=== PATIENT | male | born 1935 | race Caucasian/White ===

== ENCOUNTER 2016-07-30 09:45 | Inpatient (IN) | payer MEDICARE ==
[~2016-07-30] VITALS: Ht 172.7 cm; Wt 93.2 kg
--- NOTE | ~2016-07-30 | ECH ---
Transthoracic Echocardiography Report (TTE) Demographics Patient Name ELIZABETH BIRMINGHAM Date of Study 07/30/2016 Patient Number [id number] Visit Number [id number] Date of 1935 Room Number 414 Accession Number [id number] Gender Male Age 80 year(s) Referring Nadine Tobar Mill Attendant Britany Luz [facility] Physician Rupali Fuentes MD Physician Interpreting Rupali Fuentes Picture Frames Inspector Physician Supervising Ordering Physician Nadine Tobar MD/P Nurse Stress Supervisor Plasma Conclusions Summary Technically good exam. The estimated left ventricular ejection fraction is 15-20%. Mild concentric left ventricular hypertrophy. Moderately dilated right ventricle with normal function. The left atrium is mildly dilated by LA volume index measurement. The right atrium is moderately dilated. Mild mitral regurgitation by color Doppler. There is trivial aortic regurgitation by color Doppler. Moderate tricuspid regurgitation by color Doppler. There is severe pulmonary hypertension. The pulmonary pressure (RVSP) is 81 mmHg. Procedure Type of Study TTE procedure:Echo Complete SF. Procedure Date Date: 07/30/2016 Start: 02:59 PM Technical Quality: Good visualization Indications:Atrial fibrillation, Chest pain, Congestive heart failure, Elevated Troponin, Diabetes and Hypertension. Appropriate Use Criteria: 9 Height: 68 inches Weight: 223 pounds BSA: 2.14 m Rhythm: Atrial fibrillation HR: 80 bpm BP: 150/67 mmHg M-Mode/2D Measurements LV Diastolic Dimension: 5.46 cm LV Systolic Dimension: 4.73 cm LV Septum Diastolic: 1.13 cm LV PW Diastolic: 1.28 cm AO Root Dimension: 3.46 cm Cardiac Output: 4.81 l/min LA Dimension: 4.2 cm Cardiac Index: 2.25 l/min*m RV Diastolic Dimension: 3.98 cm LA volume index: 40 ml/m LVOT: 2.22 cm LVOT VTI: 15.53 cm RV Base: 4.9 cm LV Stroke volume: 60.08 ml RV Mid: 2.9 cm LV Stroke volume index: 28.07 ml/m TAPSE: 2 cm TDI-S': 11 cm/s Doppler Measurements AV Peak Velocity: 1.1 m/s MV Peak E-Wave: 1.04 m/s AV Peak Gradient: 4.84 mmHg AV Mean Gradient: 2.58 mmHg MV P1/2t: 49 msec LVOT Peak Velocity: 0.88 m/s AV Area (Continuity):3.6 cm AV P1/2t: 456.8 msec MV Area (PHT): 4.49 cm TR Velocity:4.06 m/s PV Peak Velocity: 1.09 m/s TR Gradient:65.93 mmHg PV Peak Gradient: 4.73 mmHg Estimated RAP:15 mmHg Estimated PASP: 80.93 mmHg Estimated RVSP: 81 mmHg RA Area: 24.27 cm Findings Left Ventricle The left ventricle is normal in size . Mild concentric left ventricular hypertrophy. Diastolic function indeterminate due to patient's arrhythmia. The interventricular septum is flattened which is consistent with right ventricular pressure / and or volume overload. Right Ventricle Moderately dilated right ventricle with normal function. Left Atrium The left atrium is mildly dilated by LA volume index measurement. Right Atrium The right atrium is moderately dilated. Mitral Valve Normal mitral valve structure and function. Mild mitral regurgitation by color Doppler. Aortic Valve The aortic valve is mildly sclerotic. There is trivial aortic regurgitation by color Doppler. Tricuspid Valve Normal tricuspid valve structure and function. Mild-moderate tricuspid regurgitation by color Doppler. There is severe pulmonary hypertension. The pulmonary pressure (RVSP) is 81 mmHg. Pulmonic Valve Normal pulmonic valve structure and function. Mild pulmonic valve regurgitation by color Doppler. Pericardial Effusion No evidence of pericardial effusion. Miscellaneous Visualized portions of the aortic root and ascending aorta appear normal in size. Pleural Effusion No evidence of pleural effusion. Contractility Score LV regional wall motion:(0-Non visualized 1-Normal 2-Hypokinesis 3-Akinesis 4-Dyskinesis 5-Aneurysm) Signature
--- NOTE | ~2016-07-30 | CATH ---
Cardiac Diagnostic Report Demographics Patient Name VALENCIA Moreno Gender Male Date of 1935 Age 80 year(s) Patient Number [id number] Date of Study 08/01/2016 Visit Number [id number] Room Number 414 Corporate ID Ht 172.72 cm Wt 101.15 kg Accession Number [id number] BSA 2.14 m kg/m Referring Nadine Tobar Primary Physician Physician King Cecil Goode MD Performing King Cecil Goode MD Secondary Physician Physician Diagnostic King Cecil Goode MD Assisting Physician Physician Interventional Physician Work Over Rig Operator Physician Findings and Conclusions Diagnostic Findings and Conclusion Nonischemic cardiomyopathy. Diagnostic Recommendations Medical management. Possible ICD. Procedure Description The patient was brought to the diagnostic cardiac catheterization laboratory in the fasting, non-sedated state. Informed consent was obtained in the written and verbal form after the risks and benefits were explained. The patient had no further questions and agreed to proceed. The planned puncture-incision site(s) were clipped and prepped with ChloraPrep and draped in the usual sterile manner. Conscious sedation, supplemental oxygen, and pain control medications were delivered by a registered nurse under physician guidance. Surface ECG rhythm, blood pressure measurement, and pulse oximetry were monitored throughout the procedure. Arterial access. The right radial access site was infiltrated with lidocaine. The vessel was entered with the Seldinger technique. A 6F sheath was advanced into the vessel and used for catheter placement. Left heart catheterization with ventriculography. A TIG catheter was advanced across the aortic valve to the left ventricle under fluoroscopic guidance. Resting hemodynamics were obtained. With the catheter at the left ventricular apex, contrast was injected. Images were obtained in WALL projection. Post-ventriculography LV pressure was obtained. The catheter was gradually withdrawn into the aorta with continuous pressure recording. Selective right coronary angiography. A TIG catheter was advanced into the right coronary vessel ostium under fluoroscopic guidance. Contrast was injected by hand. Images were obtained in multiple projections. Selective left coronary angiography. An FL4 catheter was advanced into the left coronary vessel ostium under Fluoroscopic guidance. Contrast was injected by hand. Images were obtained in multiple projections. Hemostasis: The sheath was removed and a TR Band was placed. Hemostasis was achieved. The patient was transferred to a regular nursing floor via cart accompanied by a nurse. The patient left the laboratory in stable condition. Procedure Procedure Type Diagnostic procedure:Ventriculogram:, Left, Angiography:, Coronary Angios w/LHC Indications: Acute Systolic Heart Failure, Hypertension, Hyperlipidemia and Diabetes. The procedure was explained in detail to the patient. Risks, complications and alternative treatments were reviewed. Written consent was obtained. Medications Reviewed with Patient prior to Procedure. Complications: No Complication. Angiographic Findings Dominance: Mixed Cardiac Arteries and Lesion Findings LMCA: Normal (0% Stenosis).Short LAD: Abnormal.SANDEE II flow Lesion on Mid LAD: 30% stenosis . Pre procedure SANDEE II flow was noted. LCx: Normal (0% Stenosis).SANDEE II flow RCA: Normal (0% Stenosis).SANDEE II flow Coronary Tree Procedure Data Procedure Date Date: 08/01/2016Start: 10:55 AMEnd: 11:17 AM Entry Locations - Percutaneous access was performed through the Right Radial artery (Primary location). A 6 Fr sheath was inserted. Hemostasis was successfully obtained using a TR band. Procedure Medications Order and Administration + + +-------+--------+ !Time !Medication !Dosage !Route ! + + +-------+--------+ !08/01/2016 !Versed !2 mg !I.V. ! !10:48 AM ! ! ! ! + + +-------+--------+ !08/01/2016 !Fentanyl !25 mcg !I.V. ! !10:48 AM ! ! ! ! + + +-------+--------+ !08/01/2016 !Sodium Chloride !10 ml !I.V. ! !10:48 AM ! ! ! ! + + +-------+--------+ !08/01/2016 !Oxygen !4 l/min!NC ! !10:52 AM ! ! ! ! + + +-------+--------+ !08/01/2016 !SF Radial Cocktail: 200mcg Nitro, 2.5 mg ! !I.A. ! !10:57 AM !Verapamil, 5000u Heparin ! ! ! + + +-------+--------+ !08/01/2016 !Oxygen !6 l/min!NC ! !11:01 AM ! ! ! ! + + +-------+--------+ Devices Used - A6 Fr6F TIG CATHETERwas used for:RightsideCoronary Angios. - A6 FrCATH 6FR FL4 CATHETER 100CMwas used for:LeftsideCoronary Angios. Contrast Material - Isovue 65154 ml Fluoroscopy Time: Diagnostic: 2:24 minutes. Total: 2:24 minutes. Fluoroscopy Dose: Diagnostic: 782 mGy. Total: 782 mGy. Estimated Blood Loss: 8 ml. Medical History Allergies - No known allergies. Risk Factors The patient risk factors include:hypercholesterolemia, treated hypertension, orally-treated diabetes mellitus, last creatinine: 1.2 mg/dl, creatinine clearance: 72.59 ml/min and dyslipidemia. Admission Data Admission Date: 07/30/2016 Admission Time: 11:40 AM Insurance Payors: Medicare. Clinical Evaluation Leading to Procedure Diagnosed on 07/31/2016 09:54 AM. - Anti-anginal medications were prescribed during the past two weeks. The medication is: Beta Blockers. - The reason for the patient's rn labor delivery visit is evaluation of cardiomyopathy and/or evaluation of left ventricular systolic dysfunction. VA LV function assessed as:Abnormal. Ejection Fraction - 08/01/2016 - Method: LV gram. EF%: 15. LVA Segment Contractility 1 - Normal 3 - Mild 5 - Severe 7 - Dyskinesis hypokinesis hypokinesis 2 - 4 - Moderate 6 - Akinesis 8 - Aneurysm Hypokinesis hypokinesis Hemodynamics Condition: Rest O2 Consumption: Estimated: 244.10Heart Rate: 69 bpm Pressures (mmHg) +-----+ + !Site !Pressure ! +-----+ + !LV !92/3 ,5 ! +-----+ + !AO !113/52 (89) ! +-----+ + !LV !108/0 ,32 ! +-----+ + Valve Gradients and Areas + +---------+---------+---------+ +---------+ + !Valve !Peak !Mean !Area !Index !Flow !Source ! + +---------+---------+---------+ +---------+ + !Aortic !0 ! ! ! ! ! ! + +---------+---------+---------+ +---------+ + !Aortic !0 ! ! ! ! ! ! + +---------+---------+---------+ +---------+ + Shunts Oxygen Values O2 Capacity 212.16 O2 Consumption 244.1 Discharge Data Discharge Date: 08/03/2016 Hospital Status: Inpatient Signatures
--- NOTE | 2016-08-01 10:19 | HP ---
ADMIT: 07/30/2016 RM/LOC: 414 [facility] MR#: [id number] [id number] [place], [place] [address] ELIZABETH BIRMINGHAM [address] [place] [id number] History and Physical SEX: M AGE: 80 : 1935 DATE OF SERVICE: CHIEF COMPLAINT: Severe shortness of breath, exertional dyspnea. CLINICAL HISTORY: Mr. 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 The patient had actually been seen the previous day in our office with complaints of shortness of breath and what he referred to as chest congestion. When evaluated at our office on 07/29/2016, he was found to be in atrial fibrillation with controlled ventricular response. His chest x-ray at the time in our office showed cardiomegaly without evidence of pulmonary edema. He did not have significant weight gain or peripheral edema. However, he did have new onset atrial fibrillation. I had visited with Dr. Zhang at [facility], who felt that we could start him on anticoagulation and proceed with workup on an outpatient basis. He was started on metoprolol 25 mg b.i.d. to help with rate control and started on oral Eliquis, but he notes that he actually felt more short of breath and was so dyspneic, he could not do his morning chores on the morning of 07/30/2016. So, after contacting our office, he was instructed to come to the ER where he was evaluated. Once again, he was found to be in atrial fibrillation with rate controlled. His chest x-ray in the ER showed cardiomegaly with some changes of pulmonary vascular congestion with small bilateral pleural effusions. His proBNP in the ER was elevated at 7603. For that reason, it was felt that he was in significant congestive heart failure and was given IV Lasix. He notes following that dose of Lasix in the ER, he immediately started to breathe easier. He has no previous history of congestive heart failure. No history of chest pain. He has no history of angina or any recent chest discomfort of any kind other than for shortness of breath with marked decrease in activity tolerance. He had noted the onset of this change in his physical activity tolerance about 3-4 weeks ago and it has slowly gotten a little worse since that time. He does have multiple cardiac risk factors including a history of hypertension, hyperlipidemia, and type 2 diabetes as well as obesity and a somewhat sedentary lifestyle. 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 However, it has progressed to the point that the last couple of days, he has been unable, as noted, to do his morning chores because of his dyspnea. After being evaluated in the ER, it was felt that we needed to admit for treatment of his congestive heart failure and proceed with further somewhat urgent cardiac workup. PAST MEDICAL HISTORY: Recent hospitalizations; his most recent medical hospitalization was in 2013, was hospitalized with abdominal pain at that time and was found to have multiple ureteral stones. He has a history of nephrolithiasis, was admitted with obstructive uropathy and bilateral ureterolithiasis. In August of 2013, he had undergone multiple lithotripsies as an outpatient since that time. He was hospitalized in 2009 with acute cellulitis of his right lower extremity related to a soft-tissue injury as well as prepatellar bursitis. Previous surgical procedures; the patient is ADMIT: 07/30/2016 RM/LOC: 414 [facility] MR#: [id number] [address] [address] ELIZABETH BIRMINGHAM [address] [place] [address] History and Physical SEX: M AGE: 80 : 1935 noted to have had multiple cysto's and placement of ureteral stents over the years for his kidney stones. He had bilateral stents placed in 2013 when he had those kidney stones. He also had stone basketing of a distal right ureteral calculus in 2006 and was admitted in 2002 with kidney stones as well. His initial kidney stone was in 1995. The patient does have a history as noted of multiple cysto's and stent placement as well as lithotripsy. He also has a history of previous tendon repair following a laceration of his left thumb in 1992. No other recent hospitalizations or surgical procedures. MEDICAL ILLNESSES: Include: 1. Hypertension. 2. Type 2 diabetes. 3. Hyperlipidemia. 4. Hyperuricemia. 5. Nephrolithiasis with history of uric acid stones. 6. SA node dysfunction with new onset atrial fib diagnosed on 07/29/2016. CURRENT MEDICATIONS: Include: 1. Lotrel 5/20 one q.a.m. 2. Metoprolol 25 mg b.i.d., started 07/29/2016. 3. Allopurinol 300 mg daily. 4. Eliquis 5 mg b.i.d., started 07/29/2016. 5. Metformin 500 mg one q.a.m. 6. Rosetta 180 mg daily for allergy. ALLERGIES: NO KNOWN DRUG ALLERGIES BUT DOES HAVE HISTORY OF SEASONAL ALLERGIC RHINITIS. SOCIAL HISTORY: The patient is . 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 He is a lifelong nonsmoker. No history of illicit drug use or alcohol abuse. FAMILY HISTORY: Family history is significant in that one of his brothers has a history of significant coronary artery disease and heart problems. Brother also has a history of atrial fib. He also notes a strong family history of kidney stones in several of his family members. No other familial health problems noted. REVIEW OF SYSTEMS: CONSTITUTIONAL: He notes he has not felt well for the last 3-4 weeks, very fatigued, decreased activity tolerance. He notes he just wears out easily, does not have his usual stamina and endurance. He denies fever or chills. He has had no weight loss. No change in appetite. HEENT: No new eye, ear, nose, or throat complaints. He denies any hearing deficits. No blurring of vision or double vision. No upper respiratory congestion other than for some allergy-related nasal congestion. PULMONARY: He has been very short of breath with activity. Notes if he sits around and does not do much, he is fine. It has gotten to the point that it is difficult to walk from his home up to his bar to do chores because he gets ADMIT: 07/30/2016 RM/LOC: 414 [facility] MR#: [id number] [address] [address] ELIZABETH BIRMINGHAM [address] [place] [address] History and Physical SEX: M AGE: 80 : 1935 so short of breath. No cough. No sputum production. No hemoptysis. No pleuritic chest pain. CARDIAC: No known coronary artery disease until when he was seen at our office on 07/29/2016, was found to have atrial fibrillation with rate controlled. No chest pain. He denies orthopnea. GASTROINTESTINAL: No nausea. No vomiting. No diarrhea. No blood in the bowel movements. No change in bowel habitus. GENITOURINARY: History of kidney stones. History of uric acid stones. No flank pain or dysuria at this time. MUSCULOSKELETAL: Some generalized arthritic discomfort. History of polyarthralgia, at one point was diagnosed with inflammatory arthritis, was on prednisone for an extended period of time. Now uses white grapes soaked in gin as his full-time remedy for arthritic pain. Eats about eight of these grapes per day. NEUROLOGIC: No history of strokes, seizures, or TIA's. No focal neurologic symptoms. No history of diabetic neuropathy. ENDOCRINE: He is a type 2 diabetic. Blood sugars are usually well controlled. HEMATOLOGIC: No history of blood clots or clotting disorders. No significant history of anemia. PHYSICAL EXAMINATION: VITAL SIGNS: Temp is 96.8, pulse is 86, respirations 20, blood pressure 150/67, O2 saturation 98% on room air. His weight is 223 pounds. GENERAL: The patient is a 80-year-old male, who appears his stated age. He is in no acute distress. He is resting comfortably in bed at this time, oriented x3. HEENT: Reveals his ears to be clear. Nose and throat are noninflamed. Oropharynx is normal. His pupils are equal and reactive. Sclerae are nonicteric. Conjunctivae noninflamed. NECK: Supple. Thyroid not enlarged. I cannot appreciate any significant neck vein distention. No carotid bruits. LUNGS: Noted to be clear. He is a little diminished in the bases but no wheezes. No crackles heard. HEART: Noted to be irregularly irregular. The rate is running in the 80s. I cannot appreciate significant murmur. ABDOMEN: Protuberant and obese, soft, nontender. No masses. No organomegaly. No hernias. Bowel sounds are normoactive. GENITALIA: Normal male. No hernias. EXTREMITIES: Noted to have trace of pedal and ankle edema, some mild pretibial edema, a very little edema in the lower extremities. No calf tenderness. Negative Homans sign. Strength in his lower extremities is normal. NEUROLOGIC: I can see no focal deficit. Balance is normal. Gait is normal. Cranial nerves II through XII are grossly intact. LABORATORY AND X-RAY DATA: His pre-admission laboratory work revealed a CBC that showed a white count of 6600, hemoglobin 14.5, hematocrit 42.9. ADMIT: 07/30/2016 RM/LOC: 414 [facility] MR#: [id number] [address] [address] ELIZABETH BIRMINGHAM [address] [place] [address] History and Physical SEX: M AGE: 80 : 1935 Electrolytes were normal. Sodium 141, potassium 4.4, BUN 22, creatinine 1.2. Blood sugar was elevated at 203. His cardiac enzymes revealed CK and CK-MB to be normal. His troponin I was right at the upper limits of normal at 0.042, proBNP is elevated at 7603. Chest x-ray showed cardiomegaly with some mild pulmonary vascular congestion, small bilateral pleural effusions. ASSESSMENT AT THE TIME OF ADMISSION: 1. New onset atrial fibrillation. 2. Sinoatrial node dysfunction, questionable etiology. 3. Acute congestive heart failure. 4. Shortness of breath/dyspnea on exertion due to pulmonary edema. 5. Type 2 diabetes. 6. Hypertension. 7. Hyperlipidemia. 8. Gout/hyperuricemia. PLAN: Plan is to admit the patient. We will get urgent Cardiology consult. We need echocardiogram to evaluate LV function and rule out valvular heart disease as a cause of his new onset atrial fibrillation. Need to pursue workup for significant ischemic coronary artery disease. We will also get CTA of the chest to rule out pulmonary embolus as a cause of his dyspnea and new onset atrial fibrillation. We will await further recommendations from Cardiology. Dung Mccoy MD/ rosa JOB #: [id number] CC: Dung Mccoy, Attending Physician Dung Mccoy, Family Physician
--- NOTE | 2016-08-01 16:16 | ER ---
ADMIT: 07/30/2016 RM/LOC: 414 [facility] MR#: [id number] [address] [address] ELIZABETH BIRMINGHAM [address] [place] [address] Emergency Room Report SEX: M AGE: 80 : 1935 DATE: 07/30/2016 ADDENDUM: This 80-year-old male with new onset atrial fibrillation. He was seen in the office yesterday, Cardiology consulted, they were trying to evaluate him as an outpatient. However, he became more short of breath. He also has hypertension and [id number] diabetes type 2. CBC, chemistries normal. Glucose 203. Troponin 0.042, which is just barely out of the normal range. His BNP is 7603. INR is 1.20. He is not on Coumadin but he is on Xarelto. Chest x-ray show cardiomegaly. We gave him Lasix IV 40. I spoke with Dr. Mccoy, he will fax orders. We will put him on 4th floor tele. CONDITION ON DISCHARGE: Fair. Dank Kyle MD/ rosa JOB #: [id number] CC: Dung Mccoy MD, Attending Physician Dung Mccoy MD, Family Physician
[2016-08-04] MEDS ORDERED: GLUCOPHAGE-DPS500 MG PO (11:32)
[2016-08-04] MEDS ORDERED: ZYLOPRIM-DPS300 MG PO (11:32)
[2016-08-04] MEDS ORDERED: ALLEGRA DPS180 MG PO (11:32)
[2016-08-04] MEDS ORDERED: ELIQUIS5 MG PO (11:32)
[2016-08-04] MEDS ORDERED: ENTRESTO 24 MG1 EACH PO (11:32)
[2016-08-04] MEDS ORDERED: COREG DPS6.25 MG PO (11:32)
[2016-08-04] MEDS ORDERED: NORVASC5 MG PO (11:33)
[2016-08-04] MEDS ORDERED: KLOR-CON M2020 ME1 PO (11:33)
[2016-08-04] MEDS ORDERED: TYLENOL325 MG PO (11:33)
[2016-08-04] MEDS ORDERED: LASIX DPS40 MG PO (11:33)
[2016-08-13] MEDS ORDERED: ALLEGRA DPS180 MG PO (10:45)
--- NOTE | 2016-08-29 10:56 | CO ---
ADMIT: 07/30/2016 RM/LOC: 414 [facility] MR#: [id number] [address] [address] [facility] [address] [place] [address] Consultation SEX: M AGE: 80 : 1935 DATE OF CONSULTATION: 07/30/2016 ATTENDING PHYSICIAN: Dung Mccoy CONSULTING PHYSICIAN: Morris Zapien MD REASON FOR CONSULTATION: New onset atrial fibrillation and CHF. HISTORY OF PRESENT ILLNESS: This is a 80-year-old male with a past medical history of hypertension, diabetes mellitus, and hyperlipidemia, who presented to clinic with complaints of increasing shortness of breath that had occurred gradually over the last month. The patient states that in the past week the shortness of breath had been getting worse, and he is having to sleep in a recliner. He had not noticed any lower extremity swelling, but did feel like the bases of his bilateral toes were numb. In the clinic with Dr. Mccoy, he was found to have new onset atrial fibrillation. That appointment was yesterday. At that time, he was started on Eliquis and was told to go to the ER if the shortness of breath did not improve. Apparently, the patient states the shortness of breath did worsen and so he was seen in the ER. EKG in the ER showed atrial fibrillation with a controlled rate of 78 along with bifascicular block. He was given 40 mg of IV Lasix and was put on 2 L of oxygen. He states that since being given the Lasix and having large amounts of urine output the numbness in his toes has improved. Chest x-ray done in the ER showed some cardiomegaly with pulmonary vascular congestion. A CTA was also done because of his hypoxia and was negative for any pulmonary embolism. His echo is currently pending. PAST MEDICAL HISTORY: 1. Hypertension. 2. Diabetes mellitus type 2. 3. Hyperlipidemia. 4. Seasonal allergies. 5. Gout. 6. History of kidney stones. PAST SURGICAL HISTORY: Cataract removal of the left eye. MEDICATIONS: Current med list includes: 1. Amlodipine. 2. Benazepril 5/20 daily. 3. Metoprolol tartrate 25 mg b.i.d. 4. Allopurinol 300 mg every morning. 5. Eliquis 5 mg b.i.d. 6. Metformin 500 mg every morning. 7. Rosetta 180 mg daily as needed. ALLERGIES: NONE. SOCIAL HISTORY: The patient denies any tobacco or illegal drug use. He does ADMIT: 07/30/2016 RM/LOC: 414 [facility] MR#: [id number] [address] [address] [facility] [address] Consultation SEX: M AGE: 80 : 1935 occasionally have a beer in the summer times on the hot evening. 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 FAMILY HISTORY: Dad had a history of alcoholism. Mom of unknown cause suddenly to be heart related. REVIEW OF SYSTEMS: A 10-point review of systems was reviewed and negative other than that stated above in the HPI. PHYSICAL EXAMINATION: VITAL SIGNS: Blood pressure 150/67, pulse 86, respirations 20, temp 96.8, and saturating 98% on room air. GENERAL: He is alert, in good humor. NECK: No obvious signs of JVD. HEART: Irregularly irregular. LUNGS: Diminished in the bases. ABDOMEN: Significant for hepatomegaly, otherwise soft with normal bowel sounds. EXTREMITIES: He has mild edema and hair loss. LABORATORY DATA: Sodium 141, potassium 4.4, creatinine 1.2, glucose 203, AST is 42, and ALT is 82. His initial troponin was 0.042. ProBNP was 7603. INR is 1.26. CBC showed a white count of 6.6, hemoglobin 14.5, and platelets 171. EKG showed atrial fibrillation with controlled rate of 78 and bifascicular block. Chest x-ray showed cardiomegaly with pulmonary vascular congestion. CT of the chest was negative for PE, and echo is currently pending. ASSESSMENT: 1. Newly diagnosed atrial fibrillation. 2. Congestive heart failure. 3. Diabetes. ADMIT: 07/30/2016 RM/LOC: 414 [facility] MR#: [id number] [address] [address] [facility] [address] [place] [address] Consultation SEX: M AGE: 80 : 1935 4. Hypertension. 5. Bifascicular block. 6. Elevated liver enzymes. RECOMMENDATIONS: The duration of the atrial fibrillation is unknown, but I presume that it is new. I do agree with the anticoagulation. His rate is controlled. Depending on further workup, we will decide about what we should do as far as rate versus rhythm control. He does have evidence of CHF with vascular congestion, so we are getting an echo. We will continue IV diuresis and ischemic evaluation based on his left ventricular function. We will go ahead and plan to continue Lasix 40 mg IV b.i.d. with strict Is and Os, they also like daily weights and check a TSH with his next lab. Lselye Montelongo, Resident / Morris Zapien MD / rosa JOB #: [id number] CC: Dung Mccoy, Attending Physician Dung Mccoy, Family Physician
--- NOTE | 2016-09-09 12:53 | DS ---
ADMIT: 07/30/2016 RM/LOC: 414 [facility] MR#: [id number] [address] [address] [facility] [address] [place] [address] General Discharge Summary SEX: M AGE: 80 : 1935 ADMISSION DATE: 07/30/2016 DISCHARGE DATE: 08/03/2016 ADMITTING DIAGNOSIS: As per history and physical. FINAL DIAGNOSES: 1. Nonischemic cardiomyopathy. 2. Acute combined diastolic and systolic congestive heart failure. 3. Secondary pulmonary hypertension. 4. Bifascicular block. 5. Sick sinus syndrome. 6. New-onset atrial fibrillation. 7. Type 2 diabetes. 8. Hypertension. 9. Hypokalemia. 10.Generalized osteoarthritis. 11.Hyperlipidemia. 12.Gout. 13.Ongoing Eliquis anticoagulation. PROCEDURES: The patient had heart catheterization on 08/01/2016. CLINICAL HISTORY: Mr. Birmingham is a 80-year-old, white male, admitted after presenting to the emergency room complaining of increased shortness of breath and severe dyspnea on exertion. The patient had no chest pain, no prior history of coronary artery disease. The patient had been seen in our office the previous day and found to have new-onset atrial fibrillation with controlled ventricular response with no evidence of volume overload when seen at that time; however, he was having increased shortness of breath and decreased activity tolerance. In the ER, he was found to be in atrial fibrillation with controlled ventricular response, his proBNP was elevated, his shortness of breath improved significantly after he was given IV Lasix. In view of his new onset atrial fibrillation and congestive heart failure, it was felt best to admit the patient for further evaluation as well as Cardiology consultation. For additional clinical history as well as past medical history and pertinent findings on physical exam, please see dictated history and physical. Please also see dictated Cardiology consult from Dr. Morris Zapien. LABORATORY AND X-RAY SUMMARY FROM THIS ADMISSION: His initial CBC showed a white count of 6600, hemoglobin 14.5, hematocrit 42.9. CBCs did not change significantly throughout the hospitalization. At discharge, white count was 5700, hemoglobin 15.5, hematocrit 46.7. His PTTs were monitored serially while he was on IV heparin. On admission, his pro-time was 13.2, INR was 1.26. He had been started on Eliquis the day prior to admission. Chemistry studies included a sodium of 142, potassium of 3.3, BUN of 21, creatinine of 1.1. At discharge, sodium was 142, potassium 3.8, BUN 28, creatinine 1.3. Fingerstick blood sugars were monitored q.i.d., they ranged from a low of 108 to a high of 238 during this admission. On admission, cardiac enzymes were ADMIT: 07/30/2016 RM/LOC: 414 [facility] MR#: [id number] [address] [place] [address] [facility] [place] [address] General Discharge Summary SEX: M AGE: 80 : 1935 abnormal with a mild elevation of his troponin I at 0.05, repeat was 0.04. On admission, his proBNP was elevated at 7603. As noted, his troponin I consistently were mildly elevated ranging from 0.04 to 0.05. His thyroid studies were normal with a normal free T4 and TSH. X-ray studies included a CT of the chest, which showed no evidence of pulmonary emboli, small bilateral pleural effusions, no other acute pulmonary disease. Chest x-ray showed cardiomegaly with some bibasilar atelectasis, some small bilateral pleural effusions. The patient did have heart catheterization done on 08/01/2016, which showed no evidence of significant coronary artery disease. The patient had a 30% stenosis of the mid LAD, otherwise no significant stenosis in the right coronary artery, circumflex, or left main. His echocardiogram showed an EF of 15% to 20%, concentric left ventricular hypertrophy, dilated right ventricle, mild mitral regurgitation, trivial aortic regurgitation, moderate tricuspid regurgitation, severe pulmonary hypertension. HOSPITAL COURSE: The patient was admitted. After being seen in the ER, he was continued on IV Lasix for diuresis. Cardiology was consulted. His echocardiogram was quite concerning when it showed an EF of only 15% to 20%. His Eliquis anticoagulation was placed on hold by Cardiology, and he was started on a heparin drip per protocol since it was felt that heart catheterization would be needed. Cardiology felt that he had newly diagnosed atrial fibrillation with combined systolic and diastolic heart failure with bifascicular block and evidence of sick sinus syndrome. We aggressively diuresed with Lasix and his respiratory symptoms improved significantly. He had no chest pain. His heart catheterization on 08/01/2016, showed no evidence of ischemic coronary artery disease. He was felt to have a nonischemic cardiomyopathy and medical management was recommended. He was started on oral Lasix and continued on Eliquis for anticoagulation. The patient was dismissed to home on 08/03/2016, on the following medications. DISCHARGE MEDICATIONS: 1. Coreg 6.25 mg b.i.d. 2. Eliquis 5 mg b.i.d. 3. Entresto 24/26 mg one tablet b.i.d. 4. Potassium 20 mEq two b.i.d. 5. Lasix 40 mg b.i.d. 6. Norvasc 5 mg daily. 7. Zyloprim 300 mg daily. ADMIT: 07/30/2016 RM/LOC: 414 [facility] MR#: [id number] [address] [facility] [address] [place], [place] [address] [facility] BIRM[facility] [address] [place] [address] General Discharge Summary SEX: M AGE: 80 : 1935 8. Rosetta 180 mg one daily p.r.n. allergy symptoms. 9. Tylenol p.r.n. minor discomfort. 10.Metformin 500 mg q.a.m. DISCHARGE INSTRUCTIONS: He is to follow up in our office in 1 week with labs at that time, to include a BMP and a CBC. CONDITION AT DISCHARGE: Stable and improved. PROGNOSIS: Somewhat guarded in view of the significant cardiomyopathy and severe pulmonary hypertension. Arrangements were made for followup in our office as well as with [facility] Cardiology. Dung Mccoy MD/ rosa JOB #: [id number] CC: Dung Mccoy MD, Attending Physician Dung Mccoy MD, Family Physician
== END 2016-08-03 12:41 | disposition home or self-care (01) | DRG 286 ==
LOC: ER 09:45 → 4PCU 11:40
PROVIDERS: ADMIT Family Medicine
PROC: 4A023N7 Measurement of Cardiac Sampling and Pressure, Left Heart, Percutaneous Approach (ICD-10-PCS; principal; 2016-08-01)
PROC: B2111ZZ Fluoroscopy of Multiple Coronary Arteries using Low Osmolar Contrast (ICD-10-PCS; principal; 2016-08-01)
PROC: B2151ZZ Fluoroscopy of Left Heart using Low Osmolar Contrast (ICD-10-PCS; principal; 2016-08-01)
DX: I42.9 Cardiomyopathy, unspecified (principal); I50.41 Acute combined systolic (congestive) and diastolic (congestive) heart failure; I27.2 Other secondary pulmonary hypertension; I45.2 Bifascicular block; I49.5 Sick sinus syndrome; I51.7 Cardiomegaly; I48.91 Unspecified atrial fibrillation; E11.9 Type 2 diabetes mellitus without complications; I11.0 Hypertensive heart disease with heart failure; E87.6 Hypokalemia; M19.90 Unspecified osteoarthritis, unspecified site; R79.89 Other specified abnormal findings of blood chemistry; E78.5 Hyperlipidemia, unspecified; R09.02 Hypoxemia; M10.9 Gout, unspecified; Z79.01 Long term (current) use of anticoagulants; Z79.84 Long term (current) use of oral hypoglycemic drugs; Z82.49 Family history of ischemic heart disease and other diseases of the circulatory system

== ENCOUNTER 2016-08-10 12:16 | Observation (INO) | payer MEDICARE ==
[~2016-08-10] VITALS: Ht 172.7 cm; Wt 92.4 kg
[~2016-08-10 12:16] MED LIST: ALLEGRA DPS180 MG PO; COREG DPS6.25 MG PO; ELIQUIS5 MG PO; ENTRESTO 24 MG1 EACH PO; GLUCOPHAGE-DPS500 MG PO; KLOR-CON M2020 ME1 PO; LASIX DPS40 MG PO; NORVASC5 MG PO; TYLENOL325 MG PO; ZYLOPRIM-DPS300 MG PO
[2016-08-13] MEDS ORDERED: ALLEGRA DPS180 MG PO (10:45)
--- NOTE | 2016-08-17 08:39 | ER ---
ADMIT: 08/10/2016 RM/LOC: 405 [facility] MR#: [id number] [id number] [place], [place] [address] [facility] [address] [place] [address] Emergency Room Report SEX: M AGE: 81 : 1935 DATE: 08/10/2016 This 81-year-old male states that he was a passenger of a vehicle where he was getting a swig of water and immediately had some cramping in his throat. He was then concerned as he almost passed out. He does not recall passing completely out, but he thinks he might have. Ambulance picked him up, brought him to the emergency room for evaluation. It just so happened that today, his birthday and he had been released from the hospital recently as he was admitted for new onset atrial fibrillation, sinoatrial node dysfunction, acute congestive heart failure, history of type 2 diabetes with hypertension, hyperlipidemia, gout, and hyperuricemia. So he was admitted on 07/30. He said he spent some time in the ER and was released 3-4 days after that. He was doing well at home. They have been trying to monitor some of his medications and his blood pressure medication had been stopped at this time which is amlodipine and also had the furosemide stopped, but the potassium apparently was being taken twice a day and he continued doing that. He denies any chest pain or shortness of breath at this moment. He has no swelling of his extremities. He said he was doing fine. PAST MEDICAL HISTORY: He has had ureteral stones with history of nephrolithiasis, admitted with obstructive uropathy and bilateral ureterolithiasis. He has had several surgical procedures with multiple cystos and ureteral stents over the years due to the kidney stones. He had also tendon repair following a laceration of his left thumb. Hypertension, type 2 diabetes, hyperlipidemia, hyperuricemia, and nephrolithiasis. CURRENT MEDICATIONS: 1. Allopurinol. 2. Eliquis. 3. Metformin. 4. Rosetta. 5. Coreg. 6. Entresto. 7. Klor-Con. 8. Furosemide. 9. Tylenol. ALLERGIES: NO KNOWN DRUG ALLERGIES BUT HAS HISTORY OF SEASONAL ALLERGIES AND RHINITIS. SOCIAL HISTORY: , self-employed [employer]. No history of illicit drugs or alcohol. REVIEW OF SYSTEMS: Negative at this time. PHYSICAL EXAMINATION: GENERAL: Alert and oriented. VITAL SIGNS: Blood pressure 142/85 with a heart rate of 79, respirations 12, temp 97.6, and O2 sats 94%. HEENT: Normal inspection. ADMIT: 08/10/2016 RM/LOC: 405 [facility] MR#: [id number] [address] [address] [facility] [place] [address] Emergency Room Report SEX: M AGE: 81 : 1935 NECK: Supple. RESPIRATORY: No distress. ABDOMEN: Nontender. SKIN: Pale. EXTREMITIES: Nontender with some mild edema. NEURO/PSYCH: Alert. Mood and affect are appropriate. Cranial nerves and cerebellar testing normal. LABORATORY DATA: CBC within normal limits. However, the chemistry has a potassium of 6.4, BUN 36, glucose 194, creatinine is 1.7, GFR is 38. BNP 1408. Heart does show cardiomegaly but no other changes. EKG atrial fibrillation. Dr. Manning consulted and Dr. Tanvir Louise contacted for orders as this is a patient of Dr. Mccoy. Dr. Montelongo will be coming into the hospital to assess the patient and write orders. IMPRESSION: Hyperkalemia, congestive heart failure exacerbation, hyperglycemia, and renal insufficiency. The patient awaiting room placement. YARELIS Solis / Marcos Manning MD / rosa JOB #: [id number] CC: Dung Mccoy MD, Attending Physician Dung Mccoy MD, Family Physician
--- NOTE | 2016-08-22 12:51 | HP ---
ADMIT: 08/10/2016 RM/LOC: 405 [facility] MR#: [id number] [address] [address] [facility] [address] [place] [address] History and Physical SEX: M AGE: 81 : 1935 DATE OF SERVICE: CHIEF COMPLAINT: Near syncope. HISTORY OF PRESENT ILLNESS: This is a 81-year-old male with a recent diagnosis of atrial fibrillation, heart failure with reduced ejection fraction (echo on 08/01/2016 showed an EF of 15% to 20%), nonischemic cardiomyopathy, diabetes mellitus, and hypertension, who was admitted with near syncope and hyperkalemia. The patient was discharged from [facility] a week ago after being diagnosed with new onset atrial fibrillation and CHF. He has been doing well since and going to Cardiac Rehab. The patient states that he has been compliant with his medications. 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 He instantly became nauseated and started dry heaving. He was very confused for about 5 to 10 seconds, but no loss of consciousness. His nephew was driving and so he stopped the truck, pulled over, and called 911. The patient denies any limb numbness, weakness, or tingling. No chest pain, shortness of breath, headache, vision changes, or slurring of the speech. He does not have a history of dysphagia, but did feel a "throat cramp" yesterday while mowing, but this only lasted a few seconds. He states that he is currently feeling normal and has not had any more episodes. His labs done in the ER were significant for potassium of 6.4, a BNP of 1402, and a troponin of 0.021. His chest x-ray showed cardiomegaly, but no edema. PAST MEDICAL HISTORY: 1. Atrial fibrillation. 2. Heart failure with reduced ejection fraction. He had a heart catheterization done on 08/01/2016, that just showed nonischemic cardiomyopathy and no blockages. His EF at that time was 15% to 20%. 3. Hypertension. 4. Diabetes mellitus. 5. Hyperlipidemia. 6. Gout. 7. History of kidney stones. 8. Bifascicular block. 9. Nonischemic cardiomyopathy. PAST SURGICAL HISTORY: Cataract surgery to the left eye. MEDICATIONS: 1. Allopurinol 300 mg daily. 2. Metformin 500 mg daily. 3. Eliquis 5 mg b.i.d. 4. Rosetta 180 mg daily as needed. 5. Coreg 6.25 mg b.i.d. 6. Entresto one tab b.i.d. 7. Klor-Con 40 mEq b.i.d. 8. Lasix 40 mg daily. ADMIT: 08/10/2016 RM/LOC: 405 [facility] MR#: [id number] [address] [address] [facility] [address] [place] [address] History and Physical SEX: M AGE: 81 : 1935 9. Tylenol 650 mg every 4 hours as needed. ALLERGIES: NONE. 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 He denies any tobacco or illegal drug use, but occasionally drinks a beer in the summer. FAMILY HISTORY: His dad had alcoholism. His mom of an unknown cause. REVIEW OF SYSTEMS: A 10-point review of systems was reviewed and negative other than that stated above in the HPI. PHYSICAL EXAMINATION: VITAL SIGNS: Blood pressure 150/67, pulse 72, respirations 20, temp is 97, saturating 96% on room air. GENERAL: He is alert, oriented x3, in no acute distress. HEART: Irregularly irregular. No murmurs. No carotid bruits. LUNGS: Clear. ABDOMEN: Obese, nontender, nondistended with positive bowel sounds. EXTREMITIES: No edema. NEUROLOGIC: Cranial nerves II through XII are grossly intact. No weakness in the upper lower extremities. LABORATORY DATA: Sodium 139, potassium 6.4, creatinine 1.7, troponin 0.021. BNP was 1402. White count 5.7, hemoglobin 16.7, and platelets 225. EKG showed atrial fibrillation with a rate of 71. Chest x-ray showed cardiomegaly, but no pulmonary edema. ASSESSMENT AND PLAN: 1. Hyperkalemia. We will plan to give him p.o. Kayexalate tonight and recheck his BMP after a bowel movement. We will also go ahead and hold ADMIT: 08/10/2016 RM/LOC: 405 [facility] MR#: [id number] [address] [place] [address] [facility] [place] [address] History and Physical SEX: M AGE: 81 : 1935 his Entresto since this can cause hyperkalemia. 2. Dysphagia. We will have Speech Therapy see him in the morning and likely plan for a barium swallow study to assess this issue. 3. Near syncope. I am unsure whether this is due to, but currently considering a vasovagal episode from possibly choking on his water. He does have 0 neuro deficits at this time. 4. Congestive heart failure. Continue his Lasix and Coreg again we are going to hold his interest due to his hyperkalemia. 5. Acute kidney injury. We will continue to monitor his creatinine, but we will have to be careful with his fluids due to his heart failure. 6. Atrial fibrillation. 7. Elevated troponin. We will plan to recheck this in the morning. Leslye Montelongo DO Resident / Dung Mccoy MD / rosa JOB #: [id number] CC: Dung Mccoy, Attending Physician Dung Mccoy, Family Physician
== END 2016-08-12 13:41 | disposition home or self-care (01) ==
LOC: ER 12:16 → 4PCU 15:17
PROVIDERS: ADMIT Family Medicine
DX: E87.5 Hyperkalemia (principal); I11.0 Hypertensive heart disease with heart failure; I50.9 Heart failure, unspecified; N17.9 Acute kidney failure, unspecified; I48.91 Unspecified atrial fibrillation; R13.10 Dysphagia, unspecified; R79.89 Other specified abnormal findings of blood chemistry; E11.9 Type 2 diabetes mellitus without complications; Z87.442 Personal history of urinary calculi; I42.9 Cardiomyopathy, unspecified; M10.9 Gout, unspecified; Z79.899 Other long term (current) drug therapy

== ENCOUNTER 2016-09-10 07:46 | Day surgery (SDC) | payer MEDICARE ==
[~2016-09-10] VITALS: Ht 172.7 cm; Wt 94.5 kg
--- NOTE | 2016-09-13 16:24 | CVR ---
ADMIT: 09/10/2016 RM/LOC: [facility] MR#: [id number] [address] [address] [facility] [address] [place] [address] Cardioversion Report SEX: M AGE: 81 : 1935 DATE: 09/10/2016 PROCEDURE: DC cardioversion. INDICATION: The patient is a 81-year-old male, who has a recent history of nonischemic cardiomyopathy and atrial fibrillation. He was brought to the outpatient area today for elective cardioversion. PROCEDURE IN DETAIL: After obtaining informed consent, the patient was sedated under Anesthesia's direction. Once adequate sedation was achieved, he had a cardioversion performed with 100 joules synchronized energy, which converted him to sinus rhythm. ASSESSMENT AND PLAN: The patient will be started on amiodarone to try to promote sinus rhythm. He will continue on his anticoagulation and other medications and will see Kala next week for followup and discussion of continued LifeVest usage. He will see us in approximately two months for repeat echocardiogram and determination of whether he needs an ICD. Cecil Zhang MD/ rosa JOB #: [id number] CC: Cecil Zhang, Attending Physician Dung Mccoy, Family Physician Dung Mccoy MD
== END 2016-09-10 10:49 | disposition home or self-care (01) ==
LOC: SSS 07:46
DX: I48.1 Persistent atrial fibrillation (principal); I47.2 Ventricular tachycardia; I42.9 Cardiomyopathy, unspecified; I50.21 Acute systolic (congestive) heart failure; E87.5 Hyperkalemia; Z79.899 Other long term (current) drug therapy; Z98.49 Cataract extraction status, unspecified eye; Z87.442 Personal history of urinary calculi

== ENCOUNTER → 2016-09-25 | Outpatient (CLI) | payer MEDICARE ==
--- NOTE | 2016-10-03 09:18 | SS ---
ADMIT: 09/25/2016 RM/LOC: [facility] MR#: [id number] 26[address] [facility] [id number] [place], [place] [address] [facility] B[facility] [address] [place] [address] Sleep Study SEX: M AGE: 81 : 1935 STUDY DATE: 09/25/2016 REFERRING PHYSICIAN: Cecil Zhang MD CLINIC HISTORY: A 81-year-old male with body mass of 30.4, 68 inches tall, 201 pounds, who has symptoms of fatigue, daytime sleepiness, witnessed apneas, in the sleep lab for evaluation of obstructive sleep apnea. TECHNICAL DESCRIPTION: Split-night polysomnogram performed on night of 09/25/2016, attended by a trained architectural technologist. DIAGNOSTIC POLYSOMNOGRAM FINDINGS: SLEEP: Total time in bed is 171.5 minutes, total sleep time is 158.5 minutes, sleep efficiency is 92.4%. 35.1% hours spent in stage II sleep, 21.4% hours spent in stage REM. BREATHING: Moderate to severe positional and REM-related obstructive sleep apnea with apnea-hypopnea index of 16.3. Supine apnea-hypopnea index of 58.8. During the study, there were 13 obstructive apneas and 30 obstructive hypopneas noted. OXYGEN SATURATION: Mean sleeping oxygen saturation 92%. CARDIAC: Average heart rate 56 beats per minute. MOVEMENTS/POSITION: During the study, the patient slept in supine lateral position with severe periodic leg movement of sleep. Periodic leg movement index of 37.9. CPAP TITRATION FINDINGS: TITRATION DESCRIPTION: The patient was titrated from 5 cm of CPAP to 9 cm of CPAP. ResMed AirFit N20 large mask was used as interface. SLEEP: Total time in bed is 291 minutes. Total sleep time is 186.5 minutes. Sleep efficiency 67.5%. 46.8% hours spent in stage II sleep, 22.5% time was spent in stage REM. BREATHING: Excellent resolution of obstructive sleep apnea was seen on CPAP 9 cm. The patient was seen in REM sleep in supine position. OXYGEN SATURATION: Mean sleeping oxygen 94%. CARDIAC: Average heart rate 53 beats per minute. ADMIT: 09/25/2016 RM/LOC: [facility] MR#: [id number] [address] [address] [place] [address] Sleep Study SEX: M AGE: 81 : 1935 MOVEMENTS/POSITION: During the study, the patient slept in the supine lateral position with a periodic leg movement index of 71.1. IMPRESSION/PLAN: [id number] obstructive sleep apnea with apnea- hypopnea index of 16.3, supine apnea-hypopnea of 58.8. Obstructive sleep apnea is predominantly positional and REM related. Recommend using CPAP at 9 cm with mask as mentioned above. Recommend losing weight, avoiding sedatives or alcohol. Refrain from driving if excessively sleepy. Clinical correlation needed. CPAP compliance followup is recommended. Juan C Dawkins MD/ rosa JOB #: [id number] CC: YARELIS Alicia, Attending Physician Dung Mccoy MD, Family Physician YARELIS Alicia
== END | disposition home or self-care (01) ==
LOC: RESC 20:45
DX: I50.21 Acute systolic (congestive) heart failure (principal); E11.9 Type 2 diabetes mellitus without complications; I10 Essential (primary) hypertension; I48.91 Unspecified atrial fibrillation; J90 Pleural effusion, not elsewhere classified; G47.33 Obstructive sleep apnea (adult) (pediatric)